=== PATIENT | female | born 1980 | race Caucasian/White ===

== ENCOUNTER 2016-03-10 06:41 | Emergency (ER) | payer BC ==
[~2016-03-10] VITALS: Ht 175.3 cm; Wt 132.6 kg
[~2016-03-10 06:41] MED LIST: ALPR-411 PO; ANT25 PO; CITA20TA9 PO; HYDR0.5T PO; MELO7.5T5 PO
[2016-03-10 06:46] VITALS: TEMP 37; Ht 175.3 cm; Wt 132.6 kg
[2016-03-10 07:45] LABS: URINE APPEARANCE CLEAR (CLEAR); URINE BILIRUBIN NEG (NEG); URINE COLOR YELLOW; URINE NITRITE NEG (NEG); URINE PH 5.5 (4.5-7.5); URINE SPECIFIC GRAVITY 1.007 (1.000-1.030); UROBILINOGEN NEG (NEG)
[2016-03-10 07:46] LABS: MANUAL MICROSCOPIC REQUIRED? YES; REVIEW REQ? NO
[2016-03-10] MEDS ORDERED: CIPR1TAB10 PO (07:53)
[2016-03-10 08:15] LABS: URINE BACTERIA 1+ (NEG); URINE WBC >30 /hpf (0-5)
[2016-03-10 08:16] LABS: ZZUR CULT IF INDIC CLEAN CATCH YES
[2016-03-10] MEDS ORDERED: METH4PAK PO (10:36)
--- NOTE | 2016-03-10 10:37 | EMERGENCY ROOM VISIT NOTE ---
History First contact with patient: 07:03 Chief Complaint: FLU LIKE SX Stated Complaint: FEVER,CHILLS,COLD SWEAT,SWOLLEN THROAT History of Present Illness The patient is a 36 year old female who presents to the Emergency Room with complaints of fever or chills and sore throat which started on Thursday. The patient states her symptoms started Thursday with fever chills and sweating and a temperature of 102.1. Then on Thursday when she woke up she had swelling in her lymph nodes and a sore throat. She continued to have a fever. The patient denies any head congestion, ear pain, cough, nausea, vomiting or diarrhea. The patient did have some urinary frequency with voiding small amounts but denied any dysuria, hematuria or urgency. The patient went to urgent care on Thursday due to the sore throat. She also stated that she had some low back pain and therefore they tested her for a UTI. They placed her on Cipro and were to call her in 24 hours with the culture results but they never called her back. She does admit that her urinary frequency has improved. She also states she has not had a low back pain. She woke up this morning with a migraine and took her migraine medicine patient with relief. The patient had a tonsillectomy in the past. Review of Systems 10 system review was performed and was negative unless stated otherwise history of present illness. Past Medical/Surgical History Medical Problems: (1) Rheumatoid arthritis (2) Vertigo Surgical Problems: (1) H/O tubal ligation Knee surgery, ankle surgery Family History Kidney disease Kidney stones Social History Smoking Status: Never Smoker Alcohol Use: occasionally Drug Use: none Marital Status: Housing Status: lives with family Occupation Status: employed Current/Historical Medications Scheduled Ciprofloxacin Hcl (Cipro), 500 MG PO BID Hydroxychloroquine Sulfate (Plaquenil), 400 MG PO QPM Meclizine HCl (Meclizine HCl), 25 MG PO PRN UD Meloxicam (Mobic), 7.5 MG PO QPM Scheduled PRN Alprazolam (Alprazolam), 0.5 MG PO DAILY PRN for Anxiety Allergies Coded Allergies: Codeine (Unverified Adverse Reaction, Unknown, GI UPSET, 03/10/16) Physical Exam Vital Signs Date Time Temp Pulse Resp B/P Pulse Ox O2 Delivery O2 Flow Rate FiO2 03/10/16 09:16 80 18 118/69 99 Room Air 03/10/16 06:46 37.0 94 20 125/84 98 Room Air Physical Exam Physical EXAM: Vital Signs were reviewed: Temperature 37.0, blood pressure 125/ 84, pulse rate 94, respiratory rate 20 Reviewed Nurse's notes and agree. Oxygen saturation is 98 % on room air which is normal . GENERAL: 36-year-old white female appears in no acute distress. MENTAL STATUS: Alert, oriented, coherent. EARS: Canals clear. TMs good light reflex, no erythema or fluid level noted. NOSE: Nasal mucosa with mild erythema and engorgement. PHARYNX: Mild erythema, no edema noted. No exudate noted. Tonsils absent .uvula is midline without deviation. Airway is adequate. NECK: Supple, bilateral anterior cervical lymphadenopathy is noted which is tender to palpation. No posterior nodes noted.. LUNGS: Clear to auscultation without wheezes rales or rhonchi. CARDIAC: Regular rate and rhythm without murmur. BACK: No CVA tenderness noted. ABDOMEN: Positive bowel sounds all 4 quadrants. Soft, nontender to palpation without organomegaly or masses. SKIN: No rashes noted. Medical Decision & Procedures Laboratory Results Test 03/10/16 07:20 03/10/16 09:15 Urine Color YELLOW Urine Appearance CLEAR (CLEAR) Urine pH 5.5 (4.5-7.5) Urine Specific [place] 1.007 (1.000-1.030) Urine Protein NEG (NEG) Urine Glucose (UA) NEG (NEG) Urine Ketones NEG (NEG) Urine Occult Blood 3+ (NEG) Urine Nitrite NEG (NEG) Urine Bilirubin NEG (NEG) Urine Urobilinogen NEG (NEG) Urine Leukocyte Esterase TRACE (NEG) Urine WBC (Auto) /hpf (0-5) Urine RBC (Auto) /hpf (0-4) Urine Hyaline Casts (Auto) /lpf (0-5) Urine Epithelial Cells (Auto) /lpf (0-5) Urine Bacteria (Auto) (NEG) Urine RBC 10-30 /hpf (0-4) Urine WBC >30 /hpf (0-5) Urine Epithelial Cells >30 /lpf (0-5) Urine Bacteria 1+ (NEG) Influenza Type A Antigen Neg for Influ A (NEG) Influenza Type B Antigen Neg for Influ B (NEG) ED Course The patient was evaluated. Rapid strep was negative, culture is pending. Rapid influenza was negative for influenza A and influenza B Urinalysis was consistent with UTI the patient is already on Cipro for the UTI. The patient was informed of all findings. The patient was discharged home in stable condition. Medical Decision Differential diagnosis include influenza, strep pharyngitis, mononucleosis, viral URI Impression Primary Impression: Upper respiratory infection Additional Impression: Pharyngitis Departure Information Dispostion Home / Self-Care Condition GOOD Prescriptions Methylprednisolone (MEDROL DOSEPAK) 4 Mg Jesus 0 PO DAILY, #1 PKT Prov: Yamila Jiménez PA-C 03/10/16 Referrals Syl Galdamez M.D. (PCP) Forms HOME CARE DOCUMENTATION FORM, IMPORTANT VISIT INFORMATION Patient Instructions A Signature Page, [facility], Sore Throat - [facility] Additional Instructions Follow sore throat handout instructions. Call in 24 hours for throat culture results. Push fluids, rest. Tylenol and/or ibuprofen as needed for fever and body aches. Take Medrol dosepak as prescribed. If symptoms persist, follow-up with her family physician.
[2016-03-10 10:56] VITALS: BP 111/66; PULSE 71; O2SAT 99
== END 2016-03-10 10:57 | disposition home or self-care (01) ==
LOC: C.EDB 06:42
DX: J06.9 Acute upper respiratory infection, unspecified (principal); J02.9 Acute pharyngitis, unspecified; M06.9 Rheumatoid arthritis, unspecified; Z98.51 Tubal ligation status; Z84.1 Family history of disorders of kidney and ureter

== ENCOUNTER 2017-02-15 10:21 | Emergency (ER) | payer BC ==
[~2017-02-15] VITALS: Ht 175.3 cm; Wt 114.9 kg
[~2017-02-15 10:21] MED LIST changes: +CIPR1TAB10 PO; -CITA20TA9 PO
[2017-02-15 10:47] VITALS: TEMP 36.9; Ht 175.3 cm; Wt 114.9 kg
--- NOTE | 2017-02-15 11:37 | DIAGNOSTIC IMAGING REPORT ---
R FOOT MIN 3 VIEWS ROUTINE HISTORY: 37 years-old Female foot pain/injury acute right foot pain status post fall COMPARISON: None available TECHNIQUE: 3 views of the right foot FINDINGS: Moderate plantar enthesophyte about the calcaneus. Mild medial midfoot and ankle soft tissue swelling. There is no acute fracture, dislocation or significant degenerative changes identified. No opaque foreign body. IMPRESSION: Mild soft tissue swelling without acute fracture or dislocation. The above report was generated using voice recognition software. It may contain grammatical, syntax or spelling errors. Electronically signed by: Cooper Lane M.D. 02/15/2017 11:35 AM Dictated Date/Time: 02/15/2017 11:33 AM
[2017-02-15] MEDS ORDERED: PLQ200 PO (11:41)
[2017-02-15] MEDS ORDERED: RIZA10TA21 PO (11:41)
--- NOTE | 2017-02-15 11:46 | EMERGENCY ROOM VISIT NOTE ---
ED Visit Note First contact with patient: 10:58 CHIEF COMPLAINT: Right Foot injury HISTORY of present illness: This 37-year-old female with a history of RA presents the ER with chief complaint of right foot pain. The patient states yesterday she was carrying groceries up a few steps and somehow injured her right foot. She cannot say exactly what happened to the foot but now she has severe pain with weightbearing. The patient denies any ankle pain. The patient denies any numbness and tingling in her toes. Patient denies any prior injury to her right foot. She took ibuprofen with some relief of pain. REVIEW OF SYSTEMS: 6 system review was performed and was negative unless stated otherwise in history of present illness. PMH: The patient is healthy; RA, tonsillectomy, adenoidectomy, left knee and ankle surgery SOCIAL HISTORY: Patient lives with her family. The patient denies any tobacco or alcohol use. PHYSICAL EXAM: Vital Signs: Were reviewed Reviewed Nurse's notes. GENERAL: 37- year-old white female appears in no acute distress. MENTAL Status: Alert and oriented 3. RIGHT Foot: No gross bony deformity noted. The patient is tender and swollen over the medial tarsal region on the dorsal aspect. She is able to move her toes without difficulty. Sensation is intact. Ankle joint is nontender with full range of motion. EMERGENCY DEPARTMENT COURSE: The patient was evaluated. The patient's EMR medication list were reviewed. The patient was offered additional pain medication but declined. X-ray of the right foot was ordered interpreted by the radiologist and myself. DIAGNOSTICS:R FOOT MIN 3 VIEWS ROUTINE HISTORY: 37 years-old Female foot pain/injury acute right foot pain status post fall COMPARISON: None available TECHNIQUE: 3 views of the right foot FINDINGS: Moderate plantar enthesophyte about the calcaneus. Mild medial midfoot and ankle soft tissue swelling. There is no acute fracture, dislocation or significant degenerative changes identified. No opaque foreign body. IMPRESSION: Mild soft tissue swelling without acute fracture or dislocation. The above report was generated using voice recognition software. It may contain grammatical, syntax or spelling errors. Electronically signed by: Cooper Lane M.D. 02/15/2017 11:35 AM The patient was informed of the findings. The patient was placed in a postop shoe and given crutches. The patient refused any additional pain medications for at home. The patient was discharged home in stable condition. TREATMENT: Ice and elevation for one day. Ibuprofen, 600mg every 6 hours for the pain. Wear postop shoe and use crutches for ambulation until pain is tolerable without them. If symptoms are not improving in 3-4 days, follow-up with [facility]. DIAGNOSIS: Right foot pain Problem List Medical Problems: (1) Rheumatoid arthritis Status: Chronic (2) Vertigo Status: Resolved Surgical Problems: (1) H/O tubal ligation Status: Resolved Current/Historical Medications Scheduled Hydroxychloroquine Sulfate (Hydroxychloroquine Sulfat), 400 MG PO QPM Meloxicam (Mobic), 7.5 MG PO QPM Scheduled PRN Rizatriptan Benzoate (Rizatriptan Benzoate), 10 MG PO UD PRN for Migraine Allergies Coded Allergies: Codeine (Unverified Adverse Reaction, Unknown, GI UPSET, 02/15/17) Vital Signs Date Time Temp Pulse Resp B/P (MAP) Pulse Ox O2 Delivery O2 Flow Rate FiO2 02/15/17 10:47 36.9 77 18 137/98 99 Room Air Departure Information Referrals Syl Galdamez M.D. (PCP) Patient Instructions [facility]
[2017-02-15 12:08] VITALS: BP 131/96; PULSE 69; O2SAT 98
== END 2017-02-15 12:05 | disposition home or self-care (01) ==
LOC: C.EDB 10:28 → C.EDD 12:05
DX: M79.671 Pain in right foot (principal); M06.9 Rheumatoid arthritis, unspecified; Z98.51 Tubal ligation status; Z90.89 Acquired absence of other organs; Z98.890 Other specified postprocedural states; Z79.1 Long term (current) use of non-steroidal anti-inflammatories (NSAID); Z79.899 Other long term (current) drug therapy

== ENCOUNTER 2019-01-17 09:16 | Inpatient (IN) ==
[2019-01-17 10:29] LABS: Basophils # (auto) 0.03 K/uL (0-0.2); Basophils % (auto) 0.4 %; Eosinophils # (auto) 0.06 K/uL (0-0.5); Eosinophils % (auto) 0.8 %; Hematocrit (blood only) 42.1 % (37-47); Hemoglobin 14.1 g/dL (12.0-16.0); Immature Granulocytes # (auto) 0.01 K/uL (0.00-0.02); Immature Granulocytes % (auto) 0.1 %; Lymphocytes # (auto) 2.26 K/uL (1.2-3.4); Mean Corpuscular Hemoglobin 30.4 pg (25-34); Mean Corpuscular Hgb Conc 33.5 g/dL (32-36); Mean Corpuscular Volume 90.7 fL (80-100); Mean Platelet Volume 10.3 fL (7.4-10.4); Monocytes # (auto) 0.43 K/uL (0.11-0.59); Monocytes % (auto) 5.9 %; Neutrophils # (auto) 4.49 K/uL (1.4-6.5); Neutrophils % (auto) 61.8 %; Platelet Count 380 K/uL (130-400); RDW Coefficient of Variation 13.6 % (11.5-14.5); RDW Standard Deviation 44.7 fL (36.4-46.3); Red Blood Count 4.64 M/uL (4.2-5.4); White Blood Count 7.28 K/uL (4.8-10.8)
[2019-01-17 10:30] LABS: Appearance Urine Clear (Clear); Bilirubin Urine Negative (Negative); Blood Urine Negative (Negative); Color Urine Yellow; Glucose Urine UA Negative (Negative); Ketones Urine Negative (Negative); Leukocyte Esterase Urine Negative (Negative); Nitrite Urine Negative (Negative); Protein Urine Negative (Negative); Specific Gravity Urine 1.021 (1.000-1.030); Urobilinogen Urine Negative (Negative); pH Urine 6.5 (4.5-7.5)
[2019-01-17 10:45] LABS: Albumin Level 3.5 gm/dl (3.4-5.0); BUN Creatinine Ratio 15.1 (10-20); Calcium 8.6 mg/dl (8.5-10.1); Creatinine Clr Calc Pharmacy 147.7 ml/min; Est GFR (African American) 120.8; Est GFR (Non-African American) 104.2; Magnesium 1.9 mg/dl (1.8-2.4); Potassium 3.9 mmol/L (3.5-5.1)
[2019-01-17 10:55] LABS: Pregnancy Test, Serum Negative (Negative)
[2019-01-17 10:56] LABS: Bilirubin,Total 0.3 mg/dl (0.2-1); Globulin 3.6 gm/dl (2.5-4.0); Thyroid Stimulating Hormone 0.661 uIu/ml (0.300-4.500); Total Protein 7.1 gm/dl (6.4-8.2)
[2019-01-17 11:24] LABS: Lyme Ab IgG w/WB Rflx Negative (Negative); Lyme Ab IgM w/WB Rflx Negative (Negative)
[2019-01-17] MEDS ORDERED: GADOBUTROL 65ML VIAL IV PRN (12:16)
--- NOTE | 2019-01-17 12:43 | Magnetic Resonance Report ---
MR lumbar spine wo con CLINICAL HISTORY: Bilateral lower leg numbness. TECHNIQUE: Sagittal and axial T1, T2 and STIR images were obtained. COMPARISON STUDY: No previous studies for comparison. OBSERVATIONS: The vertebral bodies and posterior elements appear intact. There is no abnormal bony signal present t o suggest a marrow replacement process. L1-2: There is a mild circumferential disc bulge. There is mild flattening of the anterior thecal sac . There is no significant foraminal narrowing L2-3: There is a circumferential disc bulge. There is mild triangular spinal stenosis. There is no si gnificant foraminal narrowing. L3-4: There is a mild circumferential disc bulge. There is minimal triangular spinal canal narrowing. There is no significant foraminal narrowing L4-5: There is a mild circumferential disc bulge. There is no significant spinal or foraminal stenosi s. L5-S1: There is a mild circumferential disc bulge. There is no significant spinal or foraminal stenos is. On the sagittal inversion recovery sequence, there is an equivocal 9 mm focus of increased signal wit hin the distal spinal cord the T12 level. This was not visualized the standard T2 images. Axial image s were not obtained to this level on this MR lumbar spine study. The technologist was notified, and t hin section images will be obtained through this level on the thoracic spine MRI which is pending IMPRESSION: 1. Equivocal 9 mm focus of increased signal within the distal spinal cord the T12 level. This will be further evaluated on an MRI of the thoracic spine which is pending 2. Mild multilevel spondylytic changes with minor triangular spinal canal narrowing at the L2-3 and L 3-4 level Electronically signed by: Ramón Davalos M.D. 01/17/2019 12:41 PM
--- NOTE | 2019-01-17 13:47 | Magnetic Resonance Report ---
MR thoracic spine wo/w con CLINICAL HISTORY: Bilateral leg and buttocks numbness. Weakness. COMPARISON STUDY: MRI of the lumbar spine from the same day FINDINGS: Sagittal and axial images were obtained before and after the administration of 12 cc of int ravenous Gadavist There are no suspicious areas of marrow replacement. There are multilevel degenerative changes. There is a tiny right paracentral disc protrusion at the T 8 3-4 level. There is a tiny left paracentral disc protrusion at T5-6 level. There is bilateral poste rior osteophytic spurring at the T6-7 level with small subjacent disc protrusions. There is a small b road-based central disc protrusion at the T7-8 level with overlying osteophytic spurs. There is narro wing of the anterior subarachnoid space. There is a mild circumferential disc bulge at the T8-9 level . There is posterior ligamentous hypertrophy at the T10-11 level. There is a minimal circumferential disc bulge the T11-12 level. These changes result in mild spinal stenosis at the T8-9 level. There is no evidence for high-grade spinal stenosis. This MRI study of thoracic spine fails to confirm the presence of a T12 cord signal abnormality. Postcontrast images reveal no pathologically enhancing lesions. IMPRESSION: 1. Mild to moderate multilevel spondylytic changes as described above. No evidence of high-grade spin al stenosis 2. No evidence of pathologic enhancement 3. No spinal cord lesions identified. This MRI study of the thoracic spine fails to confirm the prese nce of a T12 intramedullary signal abnormality as was queried on the lumbar spine study Electronically signed by: Ramón Davalos M.D. 01/17/2019 1:46 PM
--- NOTE | 2019-01-17 13:58 | Magnetic Resonance Report ---
CERVICAL SPINE MRI WITH AND WITHOUT CONTRAST HISTORY: numb legs, buttocks, weak TECHNIQUE: Multiplanar multisequence MRI of the cervical spine was performed both before and after th e use of intravenous contrast. COMPARISON STUDY: None. FINDINGS: Mild motion artifact. Straightening of the cervical spine. No fracture or subluxation. Prev ertebral soft tissues and the C1-C2 interval are intact. Multiple punctate foci of T2 hyperintensity seen within the tonya. This is better appreciated on the same day brain MRI. The cervical spinal cord is normal in course, caliber, and signal intensity. No abnormal enhancement. Mild disc space narrowin g at C6-C7. There is a focal anterior disc protrusion resulting in mild mass effect along the prevert ebral soft tissues. This measures 6 mm and is of doubtful clinical significance given the location. N o disc herniations within the central canal. There is a tiny broad-based posterior disc bulge without significant central canal or neural foraminal narrowing. C2-C3: No significant central canal or neural foraminal narrowing. C3-C4: No significant central canal or neural foraminal narrowing. C4-C5: No significant central canal or neural foraminal narrowing. C5-C6: No significant central canal or neural foraminal narrowing. C6-C7: This measures 6 mm and is of doubtful clinical significance given the location. No disc hernia tions within the central canal. There is a tiny broad-based posterior disc bulge without significant central canal or neural foraminal narrowing. C7-T1: No significant central canal or neural foraminal narrowing. IMPRESSION: 1. Punctate foci of T2 hyperintensity seen within the tonya. This is better appreciated on the same da y brain MRI. This is concerning for a demyelinating disease. 2. Straightening of the cervical spine. No significant central canal or neural foraminal narrowing. 3. Mild degenerative disc disease at C6-C7. Electronically signed by: Scott Brooks M.D. 01/17/2019 1:57 PM
--- NOTE | 2019-01-17 14:09 | Magnetic Resonance Report ---
MR brain wo/w con HISTORY: 38 years-old Female numb legs, buttocks, weak acute bilateral lower extremity numbness COMPARISON: CT head of same day TECHNIQUE: Multiplanar multisequence MRI of the brain was obtained both with and without the use of 1 2.0 mL Gadavist FINDINGS: Principal Examiner localizer images demonstrate no gross extracranial abnormality. There is no restricted diffusio n to suggest acute or subacute infarction. There are a few areas of T2 shine through noted within the bilateral parietal lobes on the diffusion-weighted sequence. No acute intracranial hemorrhage, midli ne shift, abnormal extra-axial collection, hydrocephalus or intracranial mass identified. There are s everal predominantly linear foci of increased T2/FLAIR signal noted within the deep and periventricul ar white matter of the bilateral cerebral hemispheres, predominantly within the parietal and occipita l lobes with multiple punctate foci of increased T2/FLAIR signal noted within the central tonya. There are a few additional scattered foci noted within the bilateral cerebellar hemispheres. Several these lesions demonstrate postcontrast enhancement, the largest lesion within the right occipital lobe luis a suring 9 mm (please see bookmarks). Punctate enhancement within the pontine lesions. Major flow voids appear patent. Mastoid air cells are clear. Polypoid mucosal thickening of the maxil lexi sinuses measures up to 2.2 cm on the left. Mild mucosal thickening of the nasal turbinates and e thmoid air cells. The skull, orbits and soft tissues are within normal limits. IMPRESSION: 1. No acute intracranial abnormality identified. 2. Multiple foci of increased T2/FLAIR signal noted within the white matter of the bilateral cerebral hemispheres, bilateral cerebellar hemispheres and central tonya with several of these lesions demonst rating postcontrast enhancement. Primary differential consideration would include demyelinating disea se such as multiple sclerosis or Lyme's disease with active demyelination. Neurology workup with lumb ar puncture and CSF analysis recommended. 3. Paranasal sinus disease. The above report was generated using voice recognition software. It may contain grammatical, syntax o r spelling errors. Electronically signed by: Cooper Lane M.D. 01/17/2019 2:07 PM
[2019-01-17] MEDS ORDERED: methylPREDNISolone 1,000 MG in DEXTROSE 5% 250 ML IV STA (15:02)
[2019-01-17] MEDS ORDERED: ONDANSETRON INJ 2 MG/ML 2 ML VIAL IV PRN (16:48)
[2019-01-17] MEDS ORDERED: ACETAMINOPHEN 325 MG TAB PO PRN (16:48)
[2019-01-17] MEDS: SODIUM CHLORIDE 0.9% 1000ML 1,000 ML IV SCH (16:56)
--- NOTE | 2019-01-17 17:13 | Emergency Department Note ---
Entered by Jr Valdivia acting as a scribe for Adrian Jasmine MD History of Present Illness General Chief complaint: Leg Weakness, Bilateral Stated complaint: numbness in both legs moving up Time Seen by Provider: 01/17/19 09:54 Source: patient History of Present Illness Onset (ago): day(s) 5 Location: lower extremity (bilateral feet) Pain Consistency: + other (worsening) Maximum Pain Intensity: 0 Quality: + other (bilateral feet tingling and numbness) Associated symptoms: + other (+buttock numbness; -pain to feet; -back pain; - burning with urination; -bowel movement issues ) The patient is a 38 year old female, with past medical history of rheumatoid arthritis, who presents to the Emergency Room with complaints of worsening bilateral feet tingling and numbness over the past 5 days. The patient notes her feet feel as if she walked on snow for a while. The patient also states her feet have felt cold. The patient denies pain to her feet, and reports just numbness and tingling. The patient states she stepped on a vasiliy this morning, and she st ates she never even realized she stepped on the vasiliy because she could not feel it. The patient also reports that she started experiencing numbness to her buttocks beginning yesterday. The patient notes she originally contributed the buttock numbness to sitting all day yesterday, but the patient states the numbness has not resolved today. The patient denies prior history of nerve or circulation issues to her feet, and the patient denies recent tick bites. The patient also denies pain to her back or similar symptoms to her arms. Patient had shingles in July of this year and was on Valtrex for 2 weeks. The patient states she has been on Valtrex again for about 3 weeks due to a potential flare- up of shingles-her right eye has been giving her some difficulty. The patient notes she has a cataract procedure upcoming soon. The patient states she is also on Enbrel. The patient denies a burning sensation with urination. However, the patient notes that earlier today she felt like she had already urinated in her pants prior to going to the bathroom, but she states that when she got to the bathroom, she noticed no early urination. The patient denies bowel movement issues. The patient denies being diabetic. Home Medications Home Medications Medication Instructions Recorded Confirmed Type rizatriptan 10 mg PO UD PRN 05/23/18 01/17/19 History valacyclovir 1,000 mg PO BID 01/17/19 01/17/19 History prednisolone acetate 1 drp OPHTHALMIC (EYE) BID #10 ml 01/19/19 Rx prednisone 10 mg PO DIRECTED #68 tab 01/19/19 Rx Allergies Allergy/AdvReac Type Severity Reaction Status Date / Time codeine AdvReac Unknown GI UPSET Unverified 01/17/19 10:34 Past Med/Surg History Medical History Concussion (Acute) Head trauma (Acute) Rheumatoid arthritis (Chronic) Vertigo (Resolved) Surgical History H/O tubal ligation (Resolved) Family History Other No pertinent family history in first degree relatives Social History Preferred Language: Turkish Communication Ability: Effective Breast Buffer Required: No Beliefs That Will Affect Care: Restorationist Restorationist Beliefs: Evangelical Current Living Situation: Family Feels Safe at Home: Yes Smoking Status: Never smoker Second Hand Exposure: No ; Hx Alcohol Use: Yes Hx Substance Use: No Review of Systems See HPI for pertinent positives & negatives. and A total of 10 systems reviewed and were otherwise negative Physical Exam Vital Signs Vital Signs - 24 hr 01/17/19 09:22 01/17/19 10:17 01/17/19 13:53 Temperature 36.7 C Temperature Source Oral Sepsis Recent Fever Within 48 Hours No Sepsis Action Taken by Nursing No Action Required Pulse Rate 82 Pulse Rate [Finger] 90 84 Pulse Rhythm Regular Pulse Rhythm [Finger] Pulse Strength Normal Pulse Strength [Finger] Respiratory Rate 20 18 18 Respiratory Effort / Characteristics Non-Labored Spontaneous Non-Labored Respiratory Depth Normal Normal Respiratory Pattern Regular Blood Pressure 143/98 H Blood Pressure [Right Arm] 155/90 H 138/92 Blood Pressure Mean 113 Blood Pressure Mean [Right Arm] 111 107 Blood Pressure Position [Right Arm] Pulse Oximetry 100 99 100 Oxygen Delivery Method Room Air Room Air Room Air 01/17/19 15:42 Temperature Temperature Source Sepsis Recent Fever Within 48 Hours Sepsis Action Taken by Nursing Pulse Rate Pulse Rate [Finger] 98 H Pulse Rhythm Pulse Rhythm [Finger] Regular Pulse Strength Pulse Strength [Finger] Normal Respiratory Rate 16 Respiratory Effort / Characteristics Non-Labored Respiratory Depth Normal Respiratory Pattern Regular Blood Pressure Blood Pressure [Right Arm] 162/90 H Blood Pressure Mean Blood Pressure Mean [Right Arm] 114 Blood Pressure Position [Right Arm] Sitting Pulse Oximetry 98 Oxygen Delivery Method Room Air GENERAL: Patient is in no acute distress. HEENT: No acute trauma, normocephalic atraumatic, mucous membranes moist, no nasal congestion, no scleral icterus. NECK: No stridor, no adenopathy, no meningismus, trachea is midline. LUNGS: Clear to auscultation bilaterally, no wheeze, no rhonchi, breath sounds equal. HEART: Without murmurs gallops or rubs, regular rate and rhythm. ABDOMEN: Soft, nontender, bowel sounds positive, no hernias, no peritonitis. EXTREMITIES: No cyanosis or edema, full range of motion of all the joints without pain or difficulty, no signs for acute trauma. Strong +2 dorsalis pedis pulses. NEUROLOGIC: Oriented x 3, no acute motor or sensory deficits, no focal weakness. 2/4 patellar and Achilles reflexes bilaterally. Normal sensation to the perineal and perirectal area. Patient has normal anal sphincter tone. SKIN: No rash, no jaundice, no diaphoresis. Course 0957: Past medical records reviewed. The patient was evaluated in room C9. A complete history and physical exam was performed. 1014: I discussed the patient's case with Dr. Cavanaugh-Neurology. Dr. Cavanaugh wants the entire spine of the patient imaged. 1023: I discussed the patient's case with Dr. Davalos-Radiology. 1025: I updated the patient on her case. 1105: MRI called to make sure the correct imaging was ordered. 1430: I discussed the patient's case with Dr. Cavanaugh-Neurology, who recommends the patient to be hospitalized. 1446: I updated the patient on her case. The patient is willing to stay in the hospital. 1515: I discussed the patient's case with Sole Slade-AYSE Ramsey. Dr. Cuba-Hospitalist Roxy will further evaluate the patient. Consultations Consultation #1: I discussed the patient's case with Dr. Cavanaugh-Neurology. Dr. Cavanaugh wants the entire spine of the patient imaged. Time: 10:14 Consultation #2: I discussed the patient's case with Dr. Davalos-Radiology. Time: : Consultation #3: I discussed the patient's case with Dr. Cavanaugh-Neurology, who recommends the patient to be hospitalized. Time: 14:30 Additional Consultation(s): 1515: I discussed the patient's case with Sole Ramsey. Dr. Cuba-Hospitalist Roxy will further evaluate the patient. Administered Medications Discontinued Medications Acetaminophen (Tylenol) 1,000 mg PO Q4H PRN PRN Reason: Mild Pain Stop: 01/20/19 10:45 Last Admin: 01/19/19 09:28 Dose: 1,000 mg Documented by: [id number] Gadobutrol (Gadavist 65ml) 12 ml IV ONCE PRN PRN Reason: Interaction Checking Stop: 01/21/19 12:15 Last Admin: 01/17/19 12:17 Dose: 12 ml Documented by: [id number] Methylprednisolone 1,000 mg/ (Dextrose) 266 mls @ 266 mls/hr IV NOW STA Stop: 01/17/19 16:01 Last Infusion: 01/17/19 16:57 Dose: 0 mls/hr Documented by: [id number] Admin: 01/17/19 15:41 Dose: 266 mls/hr Documented by: [id number] Sodium Chloride (Nss 1000ml) 1,000 mls @ 75 mls/hr IV .[id number] SHEYLA Stop: 02/16/19 16:47 Last Admin: 01/19/19 07:38 Dose: 75 mls/hr Documented by: [id number] Infusion: 01/19/19 07:38 Dose: 75 mls/hr Documented by: [id number] Admin: 01/18/19 20:23 Dose: 75 mls/hr Documented by: [id number] Infusion: 01/18/19 19:31 Dose: 75 mls/hr Documented by: [id number] Admin: 01/18/19 06:11 Dose: 75 mls/hr Documented by: [id number] Infusion: 01/18/19 06:11 Dose: 75 mls/hr Documented by: [id number] Admin: 01/17/19 16:56 Dose: 75 mls/hr Documented by: [id number] Methylprednisolone 1,000 mg/ (Dextrose) 266 mls @ 266 mls/hr IV NOW STA Stop: 01/18/19 17:46 Last Infusion: 01/18/19 19:19 Dose: 0 mls/hr Documented by: [id number] Admin: 01/18/19 17:46 Dose: 266 mls/hr Documented by: [id number] Methylprednisolone 1,000 mg/ (Dextrose) 266 mls @ 266 mls/hr IV DAILY SHEYLA Stop: 01/19/19 09:59 Last Infusion: 01/19/19 08:56 Dose: 0 mls/hr Documented by: [id number] Admin: 01/19/19 07:38 Dose: 266 mls/hr Documented by: [id number] Ioversol (Optiray 320 125ml) 116 ml IV ONCE PRN PRN Reason: Interaction Checking Stop: 01/21/19 19:44 Last Admin: 01/17/19 19:46 Dose: 116 ml Documented by: [id number] Prednisolone Acetate (Pred Forte 1%) 1 drops OP BID SHELYA Stop: 02/16/19 20:59 Last Admin: 01/19/19 07:38 Dose: 1 drops Documented by: [id number] Admin: 01/18/19 21:01 Dose: 1 drops Documented by: [id number] Admin: 01/18/19 07:58 Dose: 1 drops Documented by: [id number] Admin: 01/17/19 20:46 Dose: 1 drops Documented by: [id number] Valacyclovir HCl (Valtrex) 1,000 mg PO BID SHEYLA Stop: 01/27/19 20:59 Last Admin: 01/19/19 07:38 Dose: 1,000 mg Documented by: [id number] Admin: 01/18/19 21:01 Dose: 1,000 mg Documented by: [id number] Admin: 01/18/19 07:58 Dose: 1,000 mg Documented by: [id number] Admin: 01/17/19 20:45 Dose: 1,000 mg Documented by: [id number] Impression & Plan Bilateral leg weakness, Bilateral leg numbness, Abnormal brain MRI Discharge Plan Visit Data *Final* Discharge Date/Time: 01/17/19 16:28 Chief Complaint: Leg Weakness, Bilateral Stated Complaint: numbness in both legs moving up ED Provider: Adrian Jasmine Discharge Problem: Bilateral leg weakness, Bilateral leg numbness, Abnormal brain MRI Patient Disposition: Admitted As Inpatient Condition: Good Discharge Instructions Interventions: ED Discharge Assessment Last Done: 01/17/19 16:28 Medical Decision Making Differential Diagnosis Differential diagnoses include Guillain-Johnson, Lyme disease, medication reaction, MS, transverse myelitis, thyroid disorder, neuropathy, cauda equina, spinal lesion, amongst others were considered. Medical Records Attestation: I reviewed the patient's medical records. Home Medications Current Medication List: was personally reviewed by me Laboratory Data Attestation: I reviewed the patient's lab results. Result diagrams: 01/19/19 06:28 01/19/19 06:28 Lab Results 01/17/19 01/17/19 01/17/19 Range/Units 10:19 10:22 10:22 WBC 7.28 (4.8-10.8) K/uL RBC 4.64 (4.2-5.4) M/uL Hgb 14.1 (12.0-16.0) g/dL Hct 42.1 (37-47) % MCV 90.7 (80-100) fL MCH 30.4 (25-34) pg MCHC 33.5 (32-36) g/dL RDW Std Deviation 44.7 (36.4-46.3) fL RDW Coeff of Dirk 13.6 (11.5-14.5) % Plt Count 380 (130-400) K/uL MPV 10.3 (7.4-10.4) fL Immature Gran % (Auto) 0.1 % Neut % (Auto) 61.8 % Lymph % (Auto) 31.0 % Stanley % (Auto) 5.9 % Eos % (Auto) 0.8 % Baso % (Auto) 0.4 % Immature Gran # (Auto) 0.01 (0.00-0.02) K/uL Neut # (Auto) 4.49 (1.4-6.5) K/uL Lymph # (Auto) 2.26 (1.2-3.4) K/uL Stanley # (Auto) 0.43 (0.11-0.59) K/uL Eos # (Auto) 0.06 (0-0.5) K/uL Baso # (Auto) 0.03 (0-0.2) K/uL ESR (0-21) mm/hr Sodium (136-145) mmol/L Potassium (3.5-5.1) mmol/L Chloride (98-107) mmol/L Carbon Dioxide (21-32) mmol/L Anion Gap (3-11) BUN (7-18) mg/dl Creatinine (0.6-1.2) mg/dl Est Cr Clr Drug Dosing ml/min Est GFR ( Amer) Est GFR (Non-Af Amer) BUN/Creatinine Ratio (10-20) Glucose (70-99) mg/dl Calcium (8.5-10.1) mg/dl Magnesium (1.8-2.4) mg/dl Total Bilirubin (0.2-1) mg/dl AST (15-37) U/L ALT (12-78) U/L Alkaline Phosphatase (45-117) U/L Total Protein (6.4-8.2) gm/dl Albumin (3.4-5.0) gm/dl Globulin (2.5-4.0) gm/dl Albumin/Globulin Ratio (0.9-2) TSH (0.300-4.500) uIu/ml HCG, Qual Negative (Negative) Urine Color Yellow Urine Appearance Clear (Clear) Urine pH 6.5 (4.5-7.5) Ur Specific Prentice 1.021 (1.000-1.030) Urine Protein Negative (Negative) Urine Glucose (UA) Negative (Negative) Urine Ketones Negative (Negative) Urine Blood Negative (Negative) Urine Nitrite Negative (Negative) Urine Bilirubin Negative (Negative) Urine Urobilinogen Negative (Negative) Ur Leukocyte Esterase Negative (Negative) Lyme Disease IgG Ab Negative (Negative) Lyme Disease IgM Ab Negative (Negative) 01/17/19 01/17/19 Range/Units 10:22 10:22 WBC (4.8-10.8) K/uL RBC (4.2-5.4) M/uL Hgb (12.0-16.0) g/dL Hct (37-47) % MCV (80-100) fL MCH (25-34) pg MCHC (32-36) g/dL RDW Std Deviation (36.4-46.3) fL RDW Coeff of Dirk (11.5-14.5) % Plt Count (130-400) K/uL MPV (7.4-10.4) fL Immature Gran % (Auto) % Neut % (Auto) % Lymph % (Auto) % Stanley % (Auto) % Eos % (Auto) % Baso % (Auto) % Immature Gran # (Auto) (0.00-0.02) K/uL Neut # (Auto) (1.4-6.5) K/uL Lymph # (Auto) (1.2-3.4) K/uL Stanley # (Auto) (0.11-0.59) K/uL Eos # (Auto) (0-0.5) K/uL Baso # (Auto) (0-0.2) K/uL ESR 18 (0-21) mm/hr Sodium 140 (136-145) mmol/L Potassium 3.9 (3.5-5.1) mmol/L Chloride 109 H (98-107) mmol/L Carbon Dioxide 25 (21-32) mmol/L Anion Gap 6.0 (3-11) BUN 11 (7-18) mg/dl Creatinine 0.74 (0.6-1.2) mg/dl Est Cr Clr Drug Dosing 147.7 ml/min Est GFR ( Amer) 120.8 Est GFR (Non-Af Amer) 104.2 BUN/Creatinine Ratio 15.1 (10-20) Glucose 91 (70-99) mg/dl Calcium 8.6 (8.5-10.1) mg/dl Magnesium 1.9 (1.8-2.4) mg/dl Total Bilirubin 0.3 (0.2-1) mg/dl AST 8 L (15-37) U/L ALT 14 (12-78) U/L Alkaline Phosphatase 60 (45-117) U/L Total Protein 7.1 (6.4-8.2) gm/dl Albumin 3.5 (3.4-5.0) gm/dl Globulin 3.6 (2.5-4.0) gm/dl Albumin/Globulin Ratio 1.0 (0.9-2) TSH 0.661 (0.300-4.500) uIu/ml HCG, Qual (Negative) Urine Color Urine Appearance (Clear) Urine pH (4.5-7.5) Ur Specific Prentice (1.000-1.030) Urine Protein (Negative) Urine Glucose (UA) (Negative) Urine Ketones (Negative) Urine Blood (Negative) Urine Nitrite (Negative) Urine Bilirubin (Negative) Urine Urobilinogen (Negative) Ur Leukocyte Esterase (Negative) Lyme Disease IgG Ab (Negative) Lyme Disease IgM Ab (Negative) Imaging Data Radiologist's Impression: Radiology results as stated below per my review and the radiologist's interpretation: MR brain wo/w con HISTORY: 38 years-old Female numb legs, buttocks, weak acute bilateral lower extremity numbness COMPARISON: CT head of same day TECHNIQUE: Multiplanar multisequence MRI of the brain was obtained both with and without the use of 12.0 mL Gadavist FINDINGS: Shelter Monitor localizer images demonstrate no gross extracranial abnormality. There is no restricted diffusion to suggest acute or subacute infarction. There are a few areas of T2 shine through noted within the bilateral parietal lobes on the diffusion-weighted sequence. No acute intracranial hemorrhage, midline shift, ab normal extra-axial collection, hydrocephalus or intracranial mass identified. There are several predominantly linear foci of increased T2/FLAIR signal noted within the deep and periventricular white matter of the bilateral cerebral hemispheres, predominantly within the parietal and occipital lobes with multiple punctate foci of increased T2/FLAIR signal noted within the central tonya. There are a few additional scattered foci noted within the bilateral cerebellar hemispheres. Several these lesions demonstrate postcontrast enhancement, the largest lesion within the right occipital lobe measuring 9 mm (please see bookmarks). Punctate enhancement within the pontine lesions. Major flow voids appear patent. Mastoid air cells are clear. Polypoid mucosal thickening of the maxillary sinuses measures up to 2.2 cm on the left. Mild mucosal thickening of the nasal turbinates and ethmoid air cells. The skull, orbits and soft tissues are within normal limits. IMPRESSION: 1. No acute intracranial abnormality identified. 2. Multiple foci of increased T2/FLAIR signal noted within the white matter of the bilateral cerebral hemispheres, bilateral cerebellar hemispheres and central tonya with several of these lesions demonstrating postcontrast enhancement. Primary differential consideration would include demyelinating disease such as multiple sclerosis or Lyme's disease with active demyelination. Neurology workup with lumbar puncture and CSF analysis recommended. 3. Paranasal sinus disease. The above report was generated using voice recognition software. It may contain grammatical, syntax or spelling errors. Electronically signed by: Cooper Lane M.D. 01/17/2019 2:07 PM MR lumbar spine wo con CLINICAL HISTORY: Bilateral lower leg numbness. TECHNIQUE: Sagittal and axial T1, T2 and STIR images were obtained. COMPARISON STUDY: No previous studies for comparison. OBSERVATIONS: The vertebral bodies and posterior elements appear intact. There is no abnormal bony signal present to suggest a marrow replacement process. L1-2: There is a mild circumferential disc bulge. There is mild flattening of the anterior thecal sac. There is no significant foraminal narrowing L2-3: There is a circumferential disc bulge. There is mild triangular spinal s tenosis. There is no significant foraminal narrowing. L3-4: There is a mild circumferential disc bulge. There is minimal triangular spinal canal narrowing. There is no significant foraminal narrowing L4-5: There is a mild circumferential disc bulge. There is no significant spinal or foraminal stenosis. L5-S1: There is a mild circumferential disc bulge. There is no significant spinal or foraminal stenosis. On the sagittal inversion recovery sequence, there is an equivocal 9 mm focus of increased signal within the distal spinal cord the T12 level. This was not visualized the standard T2 images. Axial images were not obtained to this level on this MR lumbar spine study. The technologist was notified, and thin section images will be obtained through this level on the thoracic spine MRI which is pending IMPRESSION: 1. Equivocal 9 mm focus of increased signal within the distal spinal cord the T12 level. This will be further evaluated on an MRI of the thoracic spine which is pending 2. Mild multilevel spondylytic changes with minor triangular spinal canal narrowing at the L2-3 and L3-4 level Electronically signed by: Ramón Davalos M.D. 01/17/2019 12:41 PM MR thoracic spine wo/w con CLINICAL HISTORY: Bilateral leg and buttocks numbness. Weakness. COMPARISON STUDY: MRI of the lumbar spine from the same day FINDINGS: Sagittal and axial images were obtained before and after the administration of 12 cc of intravenous Gadavist There are no suspicious areas of marrow replacement. There are multilevel degenerative changes. There is a tiny right paracentral disc protrusion at the T8 3-4 level. There is a tiny left paracentral disc protrusion at T5-6 level. There is bilateral posterior osteophytic spurring at the T6-7 level with small subjacent disc protrusions. There is a small broad- based central disc protrusion at the T7-8 level with overlying osteophytic spurs. There is narrowing of the anterior subarachnoid space. There is a mild circumferential disc bulge at the T8-9 level. There is posterior ligamentous hypertrophy at the T10-11 level. There is a minimal circumferential disc bulge the T11-12 level. These changes result in mild spinal stenosis at the T8-9 level. There is no evidence for high-grade spinal stenosis. This MRI study of thoracic spine fails to confirm the presence of a T12 cord signal abnormality. Postcontrast images reveal no pathologically enhancing lesions. IMPRESSION: 1. Mild to moderate multilevel spondylytic changes as described above. No evidence of high-grade spinal stenosis 2. No evidence of pathologic enhancement 3. No spinal cord lesions identified. This MRI study of the thoracic spine fails to confirm the presence of a T12 intramedullary signal abnormality as was queried on the lumbar spine study Electronically signed by: Ramón Davalos M.D. 01/17/2019 1:46 PM CERVICAL SPINE MRI WITH AND WITHOUT CONTRAST HISTORY: numb legs, buttocks, weak TECHNIQUE: Multiplanar multisequence MRI of the cervical spine was performed both before and after the use of intravenous contrast. COMPARISON STUDY: None. FINDINGS: Mild motion artifact. Straightening of the cervical spine. No fracture or subluxation. Prevertebral soft tissues and the C1-C2 interval are intact. Multiple punctate foci of T2 hyperintensity seen within the tonya. This is better appreciated on the same day brain MRI. The cervical spinal cord is normal in course, caliber, and signal intensity. No abnormal enhancement. Mild disc space narrowing at C6-C7. There is a focal anterior disc protrusion resulting in mild mass effect along the prevertebral soft tissues. This measures 6 mm and is of do ubtful clinical significance given the location. No disc herniations within the central canal. There is a tiny broad-based posterior disc bulge without significant central canal or neural foraminal narrowing. C2-C3: No significant central canal or neural foraminal narrowing. C3-C4: No significant central canal or neural foraminal narrowing. C4-C5: No significant central canal or neural foraminal narrowing. C5-C6: No significant central canal or neural foraminal narrowing. C6-C7: This measures 6 mm and is of doubtful clinical significance given the location. No disc herniations within the central canal. There is a tiny broad- based posterior disc bulge without significant central canal or neural foraminal narrowing. C7-T1: No significant central canal or neural foraminal narrowing. IMPRESSION: 1. Punctate foci of T2 hyperintensity seen within the tonya. This is better appreciated on the same day brain MRI. This is concerning for a demyelinating disease. 2. Straightening of the cervical spine. No significant central canal or neural foraminal narrowing. 3. Mild degenerative disc disease at C6-C7. Electronically signed by: Scott Brooks M.D. 01/17/2019 1:57 PM Blood Pressure Blood Pressure Findings: Elevated blood pressure Blood Pressure Disposition: further management by hospitalist [facility] Narrative There is no leukocytosis or concerning anemia. No significant electrolyte abnormality or kidney failure. No evidence for liver enzyme elevation. testing was negative. The patient appeared to be in a euthyroid state. Urinalysis does not show infection, no hematuria. Lyme disease testing was negative. MRI imaging of the cervical, thoracic and lumbar spine were performed. No acute surgical process by MRI, some disc disease was seen but nothing thought surgical. No spinal lesion seen. MRI of the brain showed lesions in multiple areas consistent with potential MS versus some sort of vasculitis or Lyme disease. On exam, the patient had strong reflexes in both lower extremities. No real weakness. I spoke with neurology initially and then after the MRI results. They suggested a hospital stay as MS seems the likely cause of her symptoms. The concern and need for admission came from the fact that things have progressed rapidly in just 5 days. The patient received IV saline, she was given 1 g of IV Solu-Medrol. The Solu- Medrol was given for potential MS and was recommended by neurology. I talked to the patient about her findings. She understands the concern for MS or other demyelinating disease. She will require further testing and work-up in the hospital as per neurology. I spoke with the clinical case manager, the on-call hospitalist has been consulted. The scribe's documentation has been prepared under my direction and personally reviewed by me in its entirety. I confirm that the note above accurately reflects all work, treatment, procedures, and medical decision making performed by me.
--- NOTE | 2019-01-17 17:34 | Neurology Consultation ---
Date of Consultation January 17, 2019 Assessment & Plan (1) Abnormal brain MRI: 1. MRI brain, c spine, t spine, l spine- possible MS lesions need to r/o 2. CTA head and neck- r/o vasculitis 3. LP- tomorrow Labs ordered for r/o MS and other etiologies of lesions 4. if vasculities would start on IV solumetrol 1 g per day x 3 then 80 mg x 2 days, 60 mg x 4 days, 40 mg x 4 days, 20 mg x 4 days 10 mg x 4 days then stop 5. if positive for zoster- start IV valacyclovir 6. serum labs for r/o will be ordered for tomorrow am 7. further recommendations to follow 8. Enbrel does have an MS warning on packaging Supervising Physician Co-Signing Physician Notes I have seen and discussed above patient with Dr Lolis Cavanaugh, neurology Pt seen and examined. R V1 shingles spring 2018, secondary R cataract. Several days ago worsening vision in R eye without pain or headache, restarted on valtrex and prednisilone drops. 5 day ago numbness feet ascend to mid calf, yesterday numbness buttocks. Some urinary urgency. No spine pain, lhermittes. no prior neurodysfunction. No hx clot, miscarriage. PT with RA on embrel. Exam notable for full strength, intact and nonpath reflexes, decreased T and LT to sl above ankle, nl cerebellar dysfunction. MRI brain enchancing white matter, spine ok. MS poss triggered by Enbrel v post zoster vasculopathy. Doubt later due to absence of headache, lesions do not appear vascular, appear demyelinating. P CTA head and neck. Vasculitis vann. LP including OCB, IGG synthresis rate and myelin basic protein, cyto and testing for varicella zoster. REc tx with antiviral and solumedrol 1 gram daily for 3 d. Will follow with you. CHRISTI Cavanaugh MD History of Present Illness Reason for Consultation: possible MS Requesting Physician: Stanislav Cuba MD Attending Physician: Stanislav Cuba MD History of Present Illness Meena is a 38 year old female who has a H RA in Embrel injections, recent history of herpes Zoster of her right eye with vision loss, started on valac yclovir but was not taking it as directed, vertigo, concussion. She presents with a foot numbness and upper leg and buttock numbness. she thought it was just part of her RA but it became progressively worse. She stepped on a vasiliy and she could not feel it. Her gait is off because of not having feeling in her feet. She had an MRI which had abnormal findings and was admitted for further work up. She state there is no family history of neurologic disorders. denies CP, SOB, abdominal pain, on sided weakness, swallowing issues, decrease vision, pain with moving eye, Lhmettes sign, + bladder issues, no loss of bowel but loss of feeling in rectum. Allergies Allergy/AdvReac Type Severity Reaction Status Date / Time codeine AdvReac Unknown GI UPSET Unverified 01/17/19 10:34 Home Medications Home Medications Medication Instructions Recorded Confirmed Type etanercept [Enbrel SureClick] 50 mg SUBCUT WK 05/23/18 01/17/19 History rizatriptan 10 mg PO UD PRN 05/23/18 01/17/19 History valacyclovir 1,000 mg PO BID 01/17/19 01/17/19 History Patient History Medical History Rheumatoid arthritis (Chronic) Vertigo (Resolved) Concussion (Acute) Head trauma (Acute) Surgical History H/O tubal ligation (Resolved) Family History Other No pertinent family history in first degree relatives Social History Preferred Language: Cook Islander Communication Ability: Effective Chief Engineer Required: No Beliefs That Will Affect Care: Restorationism Restorationism Beliefs: Judaism Current Living Situation: Family Other Information That Helps Us Care for You: No Feels Safe at Home: Yes Safety Concerns: Feels Safe At This Time Smoking Status: Never smoker Do You Dip or Chew Tobacco: No ; Second Hand Exposure: No ; Tobacco Cessation Education Requested by Patient: No Hx Alcohol Use: Yes Hx Substance Use: No Physical Exam Physical Exam: Physical Exam: Constitutional: appearance over nourished, healthy Ears, Nose, Mouth and Throat: mucous membranes moist, no injection and skin normal, eyes normal Cardiovascular: normal S-1 and S-2 and regular rate and rhythm Respiratory: clear to auscultation (CTA) and no rales, rhonchi or wheeze Musculoskeletal: slight peripheral edema peripheral edema and good distal pulses Skin: no stigmata of neurocutaneous disease noted and normal and intact Eyes: extraocular muscles intact (EOMI) and pupils equal, round and reactive to light (PERRL), gross vision holguin intact NEUROLOGIC EXAMINATION: Mental status: Alert and interactive Oriented to full date and location Oriented to person Speech fluent with no evidence of aphasia Cranial Nerves smile eye brow raise intact Reflexes: Deep tendon reflexes were symmetrical and graded 2/5. Sensory: no sensory deficits, cool light touch, vibration, GT proprioception intact Coordination: finger to nose no bi pass Gait/Stance: Posture normal sitting up in bed Motor: Negative for pronator drift of out stretched arms with eyes closed. Strength: biceps triceps deltoids hand vascular physician 5/5 bilaterally, hip flex plantar flex ext 5/5 Results & Data Vital Signs (Past 12 Hours) Vital Signs Temp Pulse Pulse Resp BP BP Pulse Ox 01/17/19 16:27 86 16 144/86 H 98 01/17/19 15:42 98 H 16 162/90 H 98 01/17/19 13:53 84 18 138/92 100 01/17/19 10:17 90 18 155/90 H 99 01/17/19 09:22 36.7 C 82 20 143/98 H 100 Laboratory Results Abnormal lab results 01/17/19 Range/Units 10:22 Chloride 109 H (98-107) mmol/L AST 8 L (15-37) U/L Diagnostic Findings MRI brain- No acute intracranial abnormality identified. Multiple foci of increased T2/FLAIR signal noted within the white matter of the bilateral cerebral hemispheres, bilateral cerebellar hemispheres and central tonya with several of these lesions demonstrating postcontrast enhancement. Primary differential consideration would include demyelinating disease such as multiple sclerosis or Lyme's disease with active demyelination. Neurology workup with lumbar puncture and CSF analysis recommended. Paranasal sinus disease. MRI c spine-. Punctate foci of T2 hyperintensity seen within the tonya. This is better appreciated on the same day brain MRI. This is concerning for a demyelinating disease. Straightening of the cervical spine. No significant central canal or neural foraminal narrowing. Mild degenerative disc disease at C6-C7. MRI L spine-Equivocal 9 mm focus of increased signal within the distal spinal cord the T12 level. This will be further evaluated on an MRI of the thoracic spine which is pending Mild multilevel spondylytic changes with minor triangular spinal canal narrowing at the L2-3 and L3-4 level MRI T spine- Mild to moderate multilevel spondylytic changes as described above. No evidence of high-grade spinal stenosis No evidence of pathologic enhancement No spinal cord lesions identified. This MRI study of the thoracic spine fails to confirm the presence of a T12 intramedullary signal abnormality as was queried on the lumbar spine study
[2019-01-17] MEDS ORDERED: OPTIRAY 320 125ml IV PRN (19:45)
--- NOTE | 2019-01-17 20:30 | CT Scan Report ---
CT ANGIOGRAPHY OF THE NECK WITH CONTRAST CLINICAL HISTORY: Evaluate for vasculitis. COMPARISON STUDY: No previous studies for comparison. Technique: CT angiography of the carotid and vertebral arteries was obtained using Sensbeat 320 IV and 3D reconstruction on an independent workstation. NASCET criteria was utilized. Automated exposure c ontrol was utilized for the study. A dose lowering technique was utilized adhering to the principles of ALARA. CT DOSE: 636.19 mGy.cm Findings: Lung apices are clear. There is no cervical lymphadenopathy. No cervical spine fracture is noted. The bilateral common carotid, cervical internal carotid and vertebral arteries are patent. The re is no dissection or stenosis within these vessels. There is no wall thickening. No plaque is ident ified. There is no CT evidence for vasculitis within the major vessels of the neck. A mucous retentio n cyst within the left maxillary sinus is incidentally noted. IMPRESSION: Unremarkable CTA of the neck. No stenosis or dissection. No evidence for vasculitis within the major vessels within the neck. Electronically signed by: Martin Gregory M.D. 01/17/2019 8:28 PM
--- NOTE | 2019-01-17 20:32 | CT Scan Report ---
CTA ANGIOGRAPHY OF THE HEAD CLINICAL HISTORY: Evaluate for vasculitis. COMPARISON STUDY: MRI the brain January 17, 2019. TECHNIQUE: Helical axial images of the head were obtained following uneventful intravenous administr ation of 116 cc of Optiray 320. Automated exposure control was utilized for the study. A dose lower ing technique was utilized adhering to the principles of ALARA. FINDINGS: A mucous retention cyst within the left maxillary sinus is incidentally noted. No acute int racranial hemorrhage, midline shift or mass effect is present. Ventricular system is normal. Basilar cisterns are patent. There are no extra-axial collections. The bilateral M1, M2, A1 and A2 segments a re patent. The posterior circulation is also intact. No thrombus is noted. There is no dissection or stenosis within the major intracranial vessels. No vascular irregularity is identified to suggest a v asculitis by CT. IMPRESSION: Unremarkable CTA of the head. No CT evidence for vasculitis. No vessel occlusion, stenos is or dissection. Electronically signed by: Martin Gregory M.D. 01/17/2019 8:31 PM
[2019-01-17] MEDS: VALACYCLOVIR HCL 500 MG TABLET PO SCH (20:45)
[2019-01-17] MEDS: prednisoLONE acetate 1% OP SUSP 5 ML BTL OP SCH (20:46)
--- NOTE | 2019-01-17 21:36 | History & Physical Report ---
Date of Service January 17, 2019 Assessment & Plan (1) Bilateral leg paresthesia: 38-year-old female with stable rheumatoid arthritis on Enbrel, history of herpes zoster affecting right eye vision a few months ago, Presenting with few days history of bilateral lower extremity anesthesias and numbness. BILATERAL LEG PARESTHESIA, NUMBNESS, POSSIBLE MULTIPLE SCLEROSIS Brain MRI: IMPRESSION: 1. No acute intracranial abnormality identified. 2. Multiple foci of increased T2/FLAIR signal noted within the white matter of the bilateral cerebral hemispheres, bilateral cerebellar hemispheres and central tonya with several of these lesions demonstrating postcontrast enhancement. Primary differential consideration would include demyelinating disease such as multiple sclerosis or Lyme's disease with active demyelination. Neurology workup with lumbar puncture and CSF analysis recommended. 3. Paranasal sinus disease. --Neurologist consulted by ER physician, recommended Solu-Medrol 1 g IV, will need lumbar puncture Formal neurology consult placed, further serologic work-up to be ordered by neurology service --Neurochecks ordered RHEUMATOID ARTHRITIS --No signs and symptoms of flareup She follows with [facility] rheumatology clinic --On Enbrel weekly, hold for now, will need to be discussed with rheumatology service HERPES ZOSTER WITH RIGHT EYE INVOLVEMENT --Follows with paper sample clerk, advised to continue Valtrex p.o. twice daily DVT prophylaxis SCDs for now in light of possible lumbar puncture tomorrow Disposition PT OT evaluation Patient lives at home with family History of Present Illness 38-year-old female with history of rheumatoid arthritis, on Enbrel, Herpes zoster with right eye involvement diagnosed last spring, continue with bilateral lower extremity paresthesias times a few days. Patient follows up with [facility] rheumatology clinic for stable rheumatoid arthritis on Enbrel. During the past week, the patient was having blurred vision of the right eye. Her paper sample clerk advised her to continue p.o. Valtrex for possible herpes zoster that is not yet fully treated. For the past few days, the patient started to have paresthesias described as [id number]-[id number]/numbness of her feet and posterior lower extremities, extending to the buttock area. This has since progressed to the point that patient's walking has been affected, thus prompting consult to the ER. At the ER, MRI of the brain revealed: IMPRESSION: 1. No acute intracranial abnormality identified. 2. Multiple foci of increased T2/FLAIR signal noted within the white matter of the bilateral cerebral hemispheres, bilateral cerebellar hemispheres and central tonya with several of these lesions demonstrating postcontrast enhancement. Primary differential consideration would include demyelinating disease such as multiple sclerosis or Lyme's disease with active demyelination. Neurology workup with lumbar puncture and CSF analysis recommended. 3. Paranasal sinus disease. Neurologist was consulted, recommended Solu-Medrol 1000 mg IV. On my exam, the patient is sitting up in bed, comfortable, not in distress. Still reports paresthesias of bilateral feet and posterior lower extremities. Denies blurring of vision, diplopia, headache, or any other focal neurologic deficits. No fevers or chills. Primary Care Provider: Syl Galdamez MD Allergies Allergy/AdvReac Type Severity Reaction Status Date / Time codeine AdvReac Unknown GI UPSET Unverified 01/17/19 10:34 Home Medications Home Medications Medication Instructions Recorded Confirmed Type etanercept [Enbrel SureClick] 50 mg SUBCUT WK 05/23/18 01/17/19 History rizatriptan 10 mg PO UD PRN 05/23/18 01/17/19 History valacyclovir 1,000 mg PO BID 01/17/19 01/17/19 History Past Med/Surg History Medical History Rheumatoid arthritis (Chronic) Vertigo (Resolved) Concussion (Acute) Head trauma (Acute) Surgical History H/O tubal ligation (Resolved) Family History Other No pertinent family history in first degree relatives Social History Preferred Language: Malay Communication Ability: Effective Folder And Notcher Required: No Beliefs That Will Affect Care: Orthodoxy Orthodoxy Beliefs: Jehovah'S Witness Current Living Situation: Family Other Information That Helps Us Care for You: No Feels Safe at Home: Yes Safety Concerns: Feels Safe At This Time Smoking Status: Never smoker Do You Dip or Chew Tobacco: No ; Second Hand Exposure: No ; Tobacco Cessation Education Requested by Patient: No Hx Alcohol Use: Yes Hx Substance Use: No Review of Systems Review of Systems: All systems reviewed & are unremarkable except as noted in HPI & below Physical Exam Physical Exam: General- oriented x 3, not in distress, speaks in sentences with no effort or accessory muscle use Head- atraumatic Eyes- PERRL, EOMI, anicteric ENT- oropharynx clear Neck- supple, no JVD, no adenopathy, no thyromegaly; carotids +2/2, no bruits appreciated Lungs- clear to auscultation bilaterally, no rales/wheezes Heart- normal rate, regular rhythm; no murmur, no gallop, no rub appreciated Abdomen- normal bowel sounds, nondistended, soft, nontender, no masses or hepatosplenomegaly Extremities- no pretibial edema, no calf tenderness; peripheral pulses intact Neuro- alert, oriented x 3; CN 2-12 grossly intact; motor 5/5 bilaterally;sensation 50% on bilateral feet, otherwise 100% on all extremities; no other gross focal neurologic deficits Skin- warm & dry Results & Data Vital Signs (Past 12 Hours) Vital Signs Temp Pulse Pulse Resp BP Pulse Ox 01/17/19 20:12 37.3 C 87 18 127/83 96 01/17/19 18:06 89 01/17/19 17:52 36.7 C 70 18 126/85 96 01/17/19 16:27 86 16 144/86 H 98 01/17/19 15:42 98 H 16 162/90 H 98 01/17/19 13:53 84 18 138/92 100 01/17/19 10:17 90 18 155/90 H 99 Laboratory Results Laboratory Results - last 24 hr 01/17/19 01/17/19 01/17/19 10:19 10:22 10:22 WBC 7.28 RBC 4.64 Hgb 14.1 Hct 42.1 MCV 90.7 MCH 30.4 MCHC 33.5 RDW Std Deviation 44.7 RDW Coeff of Dirk 13.6 Plt Count 380 MPV 10.3 Immature Gran % (Auto) 0.1 Neut % (Auto) 61.8 Lymph % (Auto) 31.0 [place] % (Auto) 5.9 Eos % (Auto) 0.8 Baso % (Auto) 0.4 Immature Gran # (Auto) 0.01 Neut # (Auto) 4.49 Lymph # (Auto) 2.26 [place] # (Auto) 0.43 Eos # (Auto) 0.06 Baso # (Auto) 0.03 ESR Sodium Potassium Chloride Carbon Dioxide Anion Gap BUN Creatinine Est Cr Clr Drug Dosing Est GFR ( Amer) Est GFR (Non-Af Amer) BUN/Creatinine Ratio Glucose Calcium Magnesium Total Bilirubin AST ALT Alkaline Phosphatase Total Protein Albumin Globulin Albumin/Globulin Ratio TSH HCG, Qual Negative Urine Color Yellow Urine Appearance Clear Urine pH 6.5 Ur Specific [place] 1.021 Urine Protein Negative Urine Glucose (UA) Negative Urine Ketones Negative Urine Blood Negative Urine Nitrite Negative Urine Bilirubin Negative Urine Urobilinogen Negative Ur Leukocyte Esterase Negative Lyme Disease IgG Ab Negative Lyme Disease IgM Ab Negative 01/17/19 01/17/19 10:22 10:22 WBC RBC Hgb Hct MCV MCH MCHC RDW Std Deviation RDW Coeff of Dirk Plt Count MPV Immature Gran % (Auto) Neut % (Auto) Lymph % (Auto) [place] % (Auto) Eos % (Auto) Baso % (Auto) Immature Gran # (Auto) Neut # (Auto) Lymph # (Auto) [place] # (Auto) Eos # (Auto) Baso # (Auto) ESR 18 Sodium 140 Potassium 3.9 Chloride 109 H Carbon Dioxide 25 Anion Gap 6.0 BUN 11 Creatinine 0.74 Est Cr Clr Drug Dosing 147.7 Est GFR ( Amer) 120.8 Est GFR (Non-Af Amer) 104.2 BUN/Creatinine Ratio 15.1 Glucose 91 Calcium 8.6 Magnesium 1.9 Total Bilirubin 0.3 AST 8 L ALT 14 Alkaline Phosphatase 60 Total Protein 7.1 Albumin 3.5 Globulin 3.6 Albumin/Globulin Ratio 1.0 TSH 0.661 HCG, Qual Urine Color Urine Appearance Urine pH Ur Specific [place] Urine Protein Urine Glucose (UA) Urine Ketones Urine Blood Urine Nitrite Urine Bilirubin Urine Urobilinogen Ur Leukocyte Esterase Lyme Disease IgG Ab Lyme Disease IgM Ab Code Status & VTE Plan Code Status Full code as per patient
[2019-01-18] MEDS: SODIUM CHLORIDE 0.9% 1000ML 1,000 ML IV SCH ×2 (06:11→20:23)
[2019-01-18 06:27] LABS: BUN Creatinine Ratio 13.8 (10-20); Calcium 8.8 mg/dl (8.5-10.1); Creatinine Clr Calc Pharmacy 171.8 ml/min; Est GFR (African American) 131.1; Est GFR (Non-African American) 113.1; Potassium 3.8 mmol/L (3.5-5.1)
[2019-01-18] MEDS: VALACYCLOVIR HCL 500 MG TABLET PO SCH ×2 (07:58→21:01)
[2019-01-18] MEDS: prednisoLONE acetate 1% OP SUSP 5 ML BTL OP SCH ×2 (07:58→21:01)
[2019-01-18] MEDS ORDERED: ACETAMINOPHEN 500 MG TAB PO PRN (10:46)
--- NOTE | 2019-01-18 10:46 | Fluoroscopy Report ---
FLUOROSCOPICALLY GUIDED LUMBAR PUNCTURE CLINICAL HISTORY: abnormal MRI r/o infection and MS FLUOROSCOPY TIME: 0.9 minutes. Single fluoroscopic spot images submitted PROCEDURE: The procedure, risks and benefits were discussed with the patient including the risk of s britta headache, bleeding and infection. The patient agreed to the procedure and informed written cons ent was obtained. The procedure was performed by Dr. Brooks following a timeout. The left L5-S1 in terlaminar space was targeted. Skin overlying the space was prepped and draped in the usual sterile f ashion and local anesthesia was achieved with 1% lidocaine. Under intermittent fluoroscopic guidance, a 20-gauge x 4.75 in. Sprotte needle was inserted into the thecal sac. A total of 10 cc of clear, co lorless cerebral spinal fluid was obtained and spread amongst 4 vials. The patient tolerated the proc edure well. There were no immediate complications. The specimens were sent to the laboratory [facility] the referring physician. IMPRESSION: Successful fluoroscopic guided lumbar puncture with removal of 10 cc of clear, colorless cerebral spinal fluid. No immediate complications. Electronically signed by: Scott Brooks M.D. 01/18/2019 10:45 AM
[2019-01-18 11:17] LABS: Total Protein CSF 57.4 mg/dl (15-45)
[2019-01-18 11:24] LABS: Appearance CSF Clear; CSF Count Tube # 3; CSF Xanthrochromic No xanthochromia; Color CSF Colorless
[2019-01-18 11:25] LABS: Red Blood Cell CSF (A) 6 /uL (0-); Red Blood Cell CSF (B) 2 /uL (0-); White Blood Cell CSF (B) 56 /uL (0-5)
[2019-01-18 11:26] LABS: White Blood Cell CSF (A) 60 /uL (0-5)
--- NOTE | 2019-01-18 13:47 | Hospitalist Progress Note ---
Date of Service January 18, 2019 Assessment & Plan (1) Bilateral leg paresthesia: Abonrmal MRI findings with inflammation on LP and CSF serologies pending. Steroids per Neurology with PO taper planned. Monitor clinical response. In touch with MS specialist with whom patient may need to follow. (2) Rheumatoid arthritis: Holding Enbrel now and due for a dose today but needs to hold off. May be contributing to symptoms. Monitor for flare symptoms. (3) Herpes zoster: Continues on Valtrex. ID consulted for recommendations and thoughts on LP results. (4) DVT prophylaxis: SCDs/ambulation--consider DVT chemoprophylaxis 24 hours after LP Full Code Dispo-likely to home in 2-3 days pending clinical response to steroids. Kristy Torres DO [facility] Hospitalist Subjective 38 yo with acute numbness in her feet which is persistent, thought she was having an RA flare, but this did not manifest and she became concerned when numbness persisted. She is s/p LP revealing an elevated WBC count with a negative gram stain. She denies any infectious symptoms. She is otherwise doing well including tolerating PO. She denies any other symptoms. Review of Systems Review of Systems: All systems reviewed & are unremarkable except as noted in HPI & below Physical Exam Physical Exam: CONSTITUTIONAL: WNWD, vitals as above, generally well-aaron earing EYES: EOMI bilaterally, PERRL, normal conjunctivae ENT: MMM RESPIRATORY: clear to auscultation bilaterally, no crackles, rales or wheezes, normal respiratory effort CARDIOVASCULAR: regular rate and rhythm, S1 and 2 heard without murmurs, gallops or rubs, no JVD, no peripheral edema GASTROINTESTINAL: soft, nontender, nondistended MUSCULOSKELETAL: strength 5/5 throughout, head is normocephalic and atraumatic SKIN: warm and dry NEUROLOGIC: No facial palsy, no dysarthria. CN 2-12 grossly intact, +sensory deficit in bilateral sock distribution, normal cognition, normal speech, no t remor. PSYCHIATRIC: alert cooperative and oriented to person, place and time. Results & Data Vital Signs (Past 12 Hours) Vital Signs Temp Pulse Pulse Resp BP Pulse Ox 01/18/19 11:31 36.4 C L 78 20 113/70 96 01/18/19 08:00 71 01/18/19 07:35 36.7 C 88 20 129/82 97 01/18/19 03:14 36.5 C 81 18 122/76 97 Laboratory Results BMP 01/18/19 05:31 Sodium 138 Potassium 3.8 Chloride 109 H Carbon Dioxide 20 L BUN 9 Creatinine 0.67 Glucose 153 H Calcium 8.8 Medications Administered Current Inpatient Medications Acetaminophen (Tylenol) 1,000 mg PO Q4H PRN PRN Reason: Mild Pain Stop: 01/20/19 10:45 Gadobutrol (Gadavist 65ml) 12 ml IV ONCE PRN PRN Reason: Interaction Checking Stop: 01/21/19 12:15 Last Admin: 01/17/19 12:17 Dose: 12 ml Documented by: Sodium Chloride (Nss 1000ml) 1,000 mls @ 75 mls/hr IV .[id number] [facility] Stop: 02/16/19 16:47 Last Admin: 01/18/19 06:11 Dose: 75 mls/hr Documented by: Ioversol (Optiray 320 125ml) 116 ml IV ONCE PRN PRN Reason: Interaction Checking Stop: 01/21/19 19:44 Last Admin: 01/17/19 19:46 Dose: 116 ml Documented by: Ondansetron HCl (Zofran) 4 mg IV Q6H PRN PRN Reason: Nausea Stop: 02/16/19 16:47 Prednisolone Acetate (Pred Forte 1%) 1 drops OP BID [facility] Stop: 02/16/19 20:59 Last Admin: 01/18/19 07:58 Dose: 1 drops Documented by: Valacyclovir HCl (Valtrex) 1,000 mg PO BID [facility] Stop: 01/27/19 20:59 Last Admin: 01/18/19 07:58 Dose: 1,000 mg Documented by:
--- NOTE | 2019-01-18 15:14 | Neurology Progress Note ---
Date of Service January 18, 2019 Assessment & Plan (1) Abnormal brain MRI: 1. MRI brain, c spine, t spine, l spine- possible MS lesions need to r/o 2. CTA head and neck- r/o vasculitis - no vasculitis on imaging 3. LP- tomorrow Labs ordered for r/o MS and other etiologies of lesions 4. vasculities would start on IV solumetrol 1 g per day x 3 then 80 mg x 2 days, 60 mg x 4 days, 40 mg x 4 days, 20 mg x 4 days 10 mg x 4 days then stop 5. if positive for zoster- start IV valacyclovir 6. serum labs for r/o will be ordered for tomorrow am 7. all imaging and labs to be push over to [facility] system for further review by our MS specialist and Rheumatology 8. Enbrel does have an MS warning on packaging- she will contact her Waiter/Waitress Captain for further instructions Supervising Physician Co-Signing Physician Notes I have seen and discussed above patient with Dr Lolis Cavanaugh, neurology PT seen and examined, see my note of today, MD Mayo Doroteo Robledo is a 38 year old female who has a H RA in [facility], recent history of herpes Zoster of her right eye with vision loss, started on valacyclovir but was not taking it as directed, vertigo, concussion. She presents with a foot numbness and upper leg and buttock numbness. she thought it was just part of her RA but it became progressively worse. She stepped on a vasiliy and she could not feel it. Her gait is off because of not having feeling in her feet. She had an MRI which had abnormal findings and was admitted for further work up. She state there is no family history of neurologic disorders. She had her LP this am and is still flat, gradually has been increased and states no headache. denies CP, SOB, abdominal pain, on sided weakness, swallowing issues, decrease vision, pain with moving eye, Lhmettes sign, + bladder issues, no loss of bowel but loss of feeling in rectum. Physical Exam Physical Exam: Gen: alert NAD, oriented x 3. 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 5/5 Results & Data Vital Signs (Past 12 Hours) Vital Signs Temp Pulse Pulse Resp BP Pulse Ox 01/18/19 11:31 36.4 C L 78 20 113/70 96 01/18/19 08:00 71 01/18/19 07:35 36.7 C 88 20 129/82 97 01/18/19 03:14 36.5 C 81 18 122/76 97 Laboratory Results Abnormal lab results 01/18/19 01/18/19 01/18/19 Range/Units 05:31 10:35 10:35 Chloride 109 H (98-107) mmol/L Carbon Dioxide 20 L (21-32) mmol/L Glucose 153 H (70-99) mg/dl CSF WBC (0-5) /uL CSF Glucose 91 H (40-70) mg/dl CSF Lactate 2.7 H (0.6-2.2) mmol/L CSF Total Protein 57.4 H (15-45) mg/dl 01/18/19 Range/Units 10:35 Chloride (98-107) mmol/L Carbon Dioxide (21-32) mmol/L Glucose (70-99) mg/dl CSF WBC 60 H* (0-5) /uL CSF Glucose (40-70) mg/dl CSF Lactate (0.6-2.2) mmol/L CSF Total Protein (15-45) mg/dl Diagnostic Findings lumbar puncture - results pending CTA head-Unremarkable CTA of the head. No CT evidence for vasculitis. No vessel occlusion, stenosis or dissection. CTA neck- nremarkable CTA of the neck. No stenosis or dissection. No evidence for vasculitis within the major vessels within the neck.
[2019-01-18] MEDS ORDERED: methylPREDNISolone 1,000 MG in DEXTROSE 5% 250 ML IV STA (16:47)
--- NOTE | 2019-01-18 20:55 | Progress Note ---
DATE: 01/18/2019 I am seeing this patient in followup of paresthesias of feet and buttocks with abnormal MRI of the brain showing multiple foci of increased T2 signal flare within the white matter of the bilateral cerebral hemispheres, cerebellar hemispheres and tonya with several of these demonstrating post-contrast enhancement. Primary differential including multiple sclerosis, Lyme disease. Lumbar puncture today was performed successfully. White blood cell count 16 and 100% mononuclear cells. Glucose 91. CSF, lactate 2.7, total protein 57.4. Multiple sclerosis panel pending. Varicella zoster DNA PCR pending. Serum Lyme titer negative. Gram stain negative. Cryptococcal negative. The patient has received 1 dose of I.V. Solu-Medrol. She is on oral Valtrex. She has no complaints. No headache. No change in the paresthesias of the feet, legs or buttocks. No incontinence. PHYSICAL EXAMINATION: GENERAL: Reveals normal extraocular motility, facial symmetry. Symmetric strength. Ankle jerks, downgoing toes. Distal sensory loss to the ankles. No buttock anesthesia. Cerebellar function is normal. VITAL SIGNS: 129/85, 82, 18, 36.4. IMPRESSION: 1. Central nervous system demyelination. CTA showing no evidence of vasculitis vis--vis question of whether or not this maybe post-Zoster vasculitis. I think this is unlikely given the absence of headache or change in mental status. 2. Possible demyelinating disease, could be monophasic. However, some of the white matter lesions or nonenhancing suggesting they are older. Await CSF oligoclonal bands, myelin basic protein and IgG synthesis rate. Treat with 3 days of I.V. Solu-Medrol followed by oral steroids. 3. Regarding Varicella zoster vasculopathy, await the CSF results. Empiric antibiotic coverage at present. Infectious Disease consultation. Although the differential of a mildly elevated CSF white count is broad, I doubt this represents an acute infectious meningitic process. We have been in discussion with [facility] Neurology Multiple Sclerosis provider. She has recommended discontinuing Enbrel, but ultimately decision is hers with her ict managers. I have asked her to discuss this with rheumatology. We will follow with you.
[2019-01-19 06:47] LABS: Hematocrit (blood only) 38.1 % (37-47); Hemoglobin 12.6 g/dL (12.0-16.0); Mean Corpuscular Hemoglobin 29.7 pg (25-34); Mean Corpuscular Hgb Conc 33.1 g/dL (32-36); Mean Corpuscular Volume 89.9 fL (80-100); Mean Platelet Volume 10.5 fL (7.4-10.4); Platelet Count 349 K/uL (130-400); RDW Coefficient of Variation 13.7 % (11.5-14.5); RDW Standard Deviation 44.9 fL (36.4-46.3); Red Blood Count 4.24 M/uL (4.2-5.4); White Blood Count 15.01 K/uL (4.8-10.8)
[2019-01-19 07:21] LABS: BUN Creatinine Ratio 18.3 (10-20); Calcium 8.8 mg/dl (8.5-10.1); Creatinine Clr Calc Pharmacy 173.6 ml/min; Est GFR (African American) 131.1; Est GFR (Non-African American) 113.1; Potassium 3.9 mmol/L (3.5-5.1)
[2019-01-19] MEDS: SODIUM CHLORIDE 0.9% 1000ML 1,000 ML IV SCH (07:38)
[2019-01-19] MEDS: prednisoLONE acetate 1% OP SUSP 5 ML BTL OP SCH (07:38)
[2019-01-19] MEDS: VALACYCLOVIR HCL 500 MG TABLET PO SCH (07:38)
[2019-01-19] MEDS ORDERED: methylPREDNISolone 1,000 MG in DEXTROSE 5% 250 ML IV SCH (09:00)
--- NOTE | 2019-01-19 09:27 | Hospitalist Progress Note ---
Date of Service January 19, 2019 Assessment & Plan (1) Bilateral leg paresthesia: Abonrmal MRI findings with inflammation on LP and CSF serologies pending. Steroids per Neurology with PO taper planned. Monitor clinical response. In touch with MS specialist with whom patient may need to follow. (2) Rheumatoid arthritis: Holding Enbrel now and due for a dose today but needs to hold off. May be contributing to symptoms. Monitor for flare symptoms. (3) Herpes zoster: Continues on Valtrex. ID consulted for recommendations and thoughts on LP results. (4) DVT prophylaxis: SCDs/ambulation Full Code Dispo-likely to home today or tomorrow ROS-No Headache, No Visual Changes, No Nausea, No Vomiting, No Fever, No Chills, No Neck Pain or Stiffness, No Chest Pain, No Palpitations, No SOB, No FAIRCHILD, No Cough, No Sputum, No Wheezing, No Abdominal Pain, No Diarrhea, No Hematemesis, No Hemoptysis, No Unexpected Weight Loss, No Flank pain, No Melena, No Hematochezia, No Frequency, No Urgency, No Burning, No Hematuria, No Rashes, No Diaphoresis. Appetite is Normal, feeling much better today Physical Exam Gen-AAO x 3, NAD, Afebrile, Pleasant, Obese, walking around room Head-NCAT, EOMI, PERRLA, Anicteric Sclera, No Posterior Pharyngeal Erythema Neck-Supple, No JVD, No Thyromegaly, No Masses, No LAD, No Bruits Lungs-Clear to Auscultation Bilaterally, No Rales, No Rhonchi, No Wheezing, No Crepitus Chest-No S4, +S1, +S2, No S3, No Murmurs, No Rubs, No Gallops, No Ectopy Abdomen-Soft, Bowel Sounds Present, Non Tender, Non Distended, No Hepatomegaly, No Splenomegaly, No Palpable Masses, No Rebound, No Rigidity, No Guarding Musculoskeletal-Full Range of Motion Bilaterally, No CVAT Extremities-No Cyanosis, No Clubbing, No Edema Nuero-Cranial Nerves II-XII grossly intact, Motor WNL, DTRs WNL, Strength WNL, Non Focal Psych-Normal Mood Results & Data Vital Signs (Past 12 Hours) Vital Signs Temp Pulse Pulse Resp BP Pulse Ox 01/19/19 08:00 49 L 01/19/19 07:16 36.9 C 82 20 145/78 H 92 01/19/19 04:29 36.6 C 68 14 124/78 98 01/19/19 00:34 36.9 C 82 20 107/65 97 Most labs are pending, Others are checked
--- NOTE | 2019-01-19 10:43 | Infectious Disease Consult ---
Date of Consultation January 19, 2019 Assessment & Plan (1) Abnormal brain MRI: likely MS, mild elevation in csf wbc can be attributed to this as well. Doubt HSV encephalitis. AAO, no MRI enhancement of temporal lobes and no active HSV infection. I wonder if "foggy vision" she experience in November could not have been optic neuritis rather than HSV as she had no active vesiclar lesions associated with this. I have no contraindication to continued valtrex pending eye surgery and would defer to optho but do not feel she currently has HSV encephalitis. Ok for d/c from ID standpoint when otherwise stable History of Present Illness Attending Physician: Yuan Weaver, pt admitted after having leg numbness, MRI brain revealed lesions concerning for MS, she is being followed by neurology and is currently receiving high dose steroids for presumed MS diagnosis. She had LP showing 60 wbc, slightly elevated protein and elevated glucose, culuture and gram stain negative, viral, lyme and bands penidng. serum lyme negative, no tick exposure. no marquez, no f/c. no neck stiffness. States she had shingles around left eye in June, was treated with valtrex with resolution, she is on Enbrel for RA - this was thought to be etiology of shingles. She has had no other episodes of shingles since June. she is following with optho who diagnosed cataract in left eye incidentally with diagnosis of shingles, she is to have repair of this in Mar. She states she had an episode of "foggy vision" in November and was placed back on [facility] valtrex due to need for upcoming surgery, she remains on this. ID consulted for management on shingles. no active lesions currenlty. planning to be d/c later today with f/u with MS specialist as outpatient. she currently has no visual complaints, no marquez, f/c neck stiffness, no cp, sob, cough, no n/v/d/abd pain. overall feeling well. anxious to go home Allergies Allergy/AdvReac Type Severity Reaction Status Date / Time codeine AdvReac Unknown GI UPSET Unverified 01/17/19 10:34 Home Medications Home Medications Medication Instructions Recorded Confirmed Type etanercept [Enbrel SureClick] 50 mg SUBCUT WK 05/23/18 01/17/19 History rizatriptan 10 mg PO UD PRN 05/23/18 01/17/19 History valacyclovir 1,000 mg PO BID 01/17/19 01/17/19 History Patient History Medical History Concussion (Acute) Head trauma (Acute) Rheumatoid arthritis (Chronic) Vertigo (Resolved) Surgical History H/O tubal ligation (Resolved) Family History Other No pertinent family history in first degree relatives Social History Preferred Language: Montserratian Communication Ability: Effective Hand Rigger Required: No Beliefs That Will Affect Care: Presybeterian Presybeterian Beliefs: Gnosticism Current Living Situation: Family Other Information That Helps Us Care for You: No Feels Safe at Home: Yes Safety Concerns: Feels Safe At This Time Smoking Status: Never smoker Do You Dip or Chew Tobacco: No ; Second Hand Exposure: No ; Tobacco Cessation Education Requested by Patient: No Hx Alcohol Use: Yes Hx Substance Use: No Review of Systems Review of Systems: All systems reviewed & are unremarkable except as noted in HPI & below Physical Exam Constitutional: WD/WN, vitals as above Eyes: PERRL, conjunctivae normal, anicteric sclerae ENMT: external ear and nose normal, oropharynx normal Neck: normal visual inspection Respiratory: normal respiratory effort, lungs clear to auscultation Cardiovascular: RRR, no murmur, no edema Gastrointestinal (Abdomen): normal bowel sounds, soft, nontender, no hepatosplenomegaly Musculoskeletal: no cyanosis or clubbing, extremities motor strength 5/5 Skin: no rashes, warm and dry Psychiatric: A+Ox3, euthymic affect Results & Data Vital Signs (Past 12 Hours) Vital Signs Temp Pulse Pulse Resp BP Pulse Ox 01/19/19 08:00 49 L 01/19/19 07:16 36.9 C 82 20 145/78 H 92 01/19/19 04:29 36.6 C 68 14 124/78 98 01/19/19 00:34 36.9 C 82 20 107/65 97 Laboratory Results Microbiology 01/18/19 10:35 Cerebral Spinal Fluid Cryptococcal Antigen Test - Final 01/18/19 10:35 Cerebral Spinal Fluid Gram Stain - Final PG Care Time/CCT Total # of Minutes Spent Total Time Spent with Patient: Total time spent is greater than 50% in coordination of care (as documented) at patient's floor/unit and/or counseling patient:
--- NOTE | 2019-01-19 14:37 | Neurology Progress Note ---
Date of Service January 19, 2019 Assessment & Plan (1) Abnormal brain MRI: 1. MRI brain, c spine, t spine, l spine- possible MS lesions need to r/o 2. CTA head and neck- r/o vasculitis - no vasculitis on imaging 3. LP- Labs ordered for r/o MS and other etiologies of lesions- pending 4. given IV solumetrol 1 g per day x 3 please discharge on 80 mg x 2 days, 60 mg x 4 days, 40 mg x 4 days, 20 mg x 4 days 10 mg x 4 days then stop 5. if positive for zoster- start IV valacyclovir - ID does not think she has CSF involvement and deferring her Valtrex treatment to ophthalmology 6. serum labs for r/o 7. all imaging and labs to be push over to [facility] system for further review by our MS specialist and Rheumatology 8. Enbrel does have an MS warning on packaging- she will contact her Ignition Mechanic for further instructions - was told to stop by rheumatology 9. will arrange for her to see our MS specialist at [facility] or with Dr Cavanaugh Supervising Physician Co-Signing Physician Notes I have seen and discussed above patient with Dr Lolis Cavanaugh, neurology Patient discussed with Llois Garcia. She was discharged prior to my seeing her. Lumbar puncture results show preliminary evidence of no bacterial fungal or tuberculous infection. Varicella-zoster titers and labs for multiple sclerosis are pending. Per Lolis Garcia her exam was somewhat improved with less sensory symptoms today. Infectious disease has seen the patient and did not have any objection if ophthalmology want to continue Valtrex. Clinical impression is demyelinating disease probably not HSV related. Possibly related to Enbrel. Continue 3 days of IV steroids followed by oral taper. We will follow-up on her CSF findings. We are arranging for her to see neuro immunology at [facility]. Doroteo Robledo is a 38 year old female who has a H RA in [place] [facility], recent history of herpes Zoster of her right eye with vision loss, started on valacy clovir but was not taking it as directed, vertigo, concussion. She presents with a foot numbness and upper leg and buttock numbness. she thought it was just part of her RA but it became progressively worse. She stepped on a vasiliy and she could not feel it. Her gait is off because of not having feeling in her feet. She had an MRI which had abnormal findings and was admitted for further work up. She state there is no family history of neurologic disorders. She had her LP this am and is still flat, gradually has been increased and states no headache. She is feeling pretty good today and has been given IV solumedrol 1g x 3 days. She does have a slight headache today but tylenol does relieve it. 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 5/5 bilaterally hip flex 5/5 no pronator drift finger to nose and heel to michael intact, rapid hand movements intact sensation decreased bilaterally LE from heel to toes and toes to mid foot with cool touch Results & Data Vital Signs (Past 12 Hours) Vital Signs Temp Pulse Pulse Resp BP Pulse Ox 01/19/19 11:15 36.4 C L 65 16 136/78 98 01/19/19 08:00 49 L 01/19/19 07:16 36.9 C 82 20 145/78 H 92 01/19/19 04:29 36.6 C 68 14 124/78 98 Laboratory Results Abnormal lab results 01/19/19 01/19/19 Range/Units 06:28 06:28 WBC 15.01 H (4.8-10.8) K/uL MPV 10.5 H (7.4-10.4) fL Chloride 111 H (98-107) mmol/L Carbon Dioxide 19 L (21-32) mmol/L Glucose 147 H (70-99) mg/dl Diagnostic Findings no new imaging
--- NOTE | 2019-01-19 15:05 | Discharge Summary ---
Date of Service January 19, 2019 Admission HPI Per Admitting Provider 38-year-old female with history of rheumatoid arthritis, on Enbrel, Herpes zoster with right eye involvement diagnosed last spring, continue with bilateral lower extremity paresthesias times a few days. Patient follows up with [facility] rheumatology clinic for stable rheumatoid arthritis on Enbrel. During the past week, the patient was having blurred vision of the right eye. Her quality analyst/technical writer advised her to continue p.o. Valtrex for possible herpes zoster that is not yet fully treated. For the past few days, the patient started to have paresthesias described as aywr-zfw-bnewhts/numbness of her feet and posterior lower extremities, extending to the buttock area. This has since progressed to the point that patient's walking has been affected, thus prompting consult to the ER. At the ER, MRI of the brain revealed: IMPRESSION: 1. No acute intracranial abnormality identified. 2. Multiple foci of increased T2/FLAIR signal noted within the white matter of the bilateral cerebral hemispheres, bilateral cerebellar hemispheres and central tonya with several of these lesions demonstrating postcontrast enhancement. Primary differential consideration would include demyelinating disease such as multiple sclerosis or Lyme's disease with active demyelination. Neurology workup with lumbar puncture and CSF analysis recommended. 3. Paranasal sinus disease. Neurologist was consulted, recommended Solu-Medrol 1000 mg IV. On my exam, the patient is sitting up in bed, comfortable, not in distress. Still reports paresthesias of bilateral feet and posterior lower extremities. Denies blurring of vision, diplopia, headache, or any other focal neurologic deficits. No fevers or chills. Primary Care Provider: Syl Galdamez MD Admission Exam Per Admitting Provider General- oriented x 3, not in distress, speaks in sentences with no effort or accessory muscle use Head- atraumatic Eyes- PERRL, EOMI, anicteric ENT- oropharynx clear Neck- supple, no JVD, no adenopathy, no thyromegaly; carotids +2/2, no bruits appreciated Lungs- clear to auscultation bilaterally, no rales/wheezes Heart- normal rate, regular rhythm; no murmur, no gallop, no rub appreciated Abdomen- normal bowel sounds, nondistended, soft, nontender, no masses or hepatosplenomegaly Extremities- no pretibial edema, no calf tenderness; peripheral pulses intact Neuro- alert, oriented x 3; CN 2-12 grossly intact; motor 5/5 bilaterally;sensation 50% on bilateral feet, otherwise 100% on all extremities; no other gross focal neurologic deficits Skin- warm & dry Principal Diagnosis Possible MS RA Leg Paresthesias Abnormal MRI Discharge Exam ROS-No Headache, No Visual Changes, No Nausea, No Vomiting, No Fever, No Chills, No Neck Pain or Stiffness, No Chest Pain, No Palpitations, No SOB, No FAIRCHILD, No Cough, No Sputum, No Wheezing, No Abdominal Pain, No Diarrhea, No Hematemesis, No Hemoptysis, No Unexpected Weight Loss, No Flank pain, No Melena, No Hematochezia, No Frequency, No Urgency, No Burning, No Hematuria, No Rashes, No Diaphoresis. Appetite is Normal Physical Exam Gen-AAO x 3, NAD, Afebrile Head-NCAT, EOMI, PERRLA, Anicteric Sclera, No Posterior Pharyngeal Erythema Neck-Supple, No JVD, No Thyromegaly, No Masses, No LAD, No Bruits Lungs-Clear to Auscultation Bilaterally, No Rales, No Rhonchi, No Wheezing, No Crepitus Chest-No S4, +S1, +S2, No S3, No Murmurs, No Rubs, No Gallops, No Ectopy Abdomen-Soft, Bowel Sounds Present, Non Tender, Non Distended, No Hepatomegaly, No Splenomegaly, No Palpable Masses, No Rebound, No Rigidity, No Guarding Musculoskeletal-Full Range of Motion Bilaterally, No CVAT Extremities-No Cyanosis, No Clubbing, No Edema Nuero-Cranial Nerves II-XII grossly intact, Motor WNL, DTRs WNL, Strength WNL, Non Focal Psych-Normal Mood Discharge Data Allergies Allergy/AdvReac Type Severity Reaction Status Date / Time codeine AdvReac Unknown GI UPSET Unverified 01/17/19 10:34 Consultations 01/17/19 15:14 ED Decision to Admit Stat 01/17/19 16:48 Consult Neurology Routine 01/18/19 12:46 Consult Infectious Diseases Routine Ordered Studies 01/17/19 10:20 MR brain wo/w con Stat MR cervical spine wo/w con Stat MR lumbar spine wo con Stat MR thoracic spine wo/w con Stat 01/17/19 18:11 CT angio head w con Routine CT angio neck with con Routine 01/18/19 10:00 FL lumbar puncture diagnostic Routine Current Diagnoses Zoster without complications (01/17/19) Rheumatoid arthritis, unspecified (01/17/19) Paresthesia of skin (01/17/19) Other abnormal findings on diagnostic imaging of central nervous system (01/17/19) Encounter for prophylactic measures, unspecified (01/17/19) Allergies codeine Adverse Reaction (Unknown, Unverified 01/17/19 10:34) GI UPSET Height/Weight/Isolation Height 5 ft 9 in Weight 137.5 kg Chemistry 01/18/19 01/19/19 05:31 06:28 Sodium 138 140 Potassium 3.8 3.9 Chloride 109 H 111 H Carbon Dioxide 20 L 19 L Anion Gap 9.0 10.0 BUN 9 12 Creatinine 0.67 0.67 Glucose 153 H 147 H Microbiology 01/18/19 10:35 Cerebral Spinal Fluid Acid Fast Bacilli Smear - Final 01/18/19 10:35 Cerebral Spinal Fluid Acid Fast Bacilli Culture - Pending 01/18/19 10:35 Cerebral Spinal Fluid Gram Stain - Final 01/18/19 10:35 Cerebral Spinal Fluid CSF Culture - Preliminary No growth to date. 01/18/19 10:35 Cerebral Spinal Fluid Cryptococcal Antigen Test - Final 01/18/19 10:35 Cerebral Spinal Fluid Fungal Culture - Pending Hospital Course (1) Bilateral leg paresthesia: Abonrmal MRI findings with inflammation on LP and CSF serologies pending. Steroids per Neurology with PO taper planned. In touch with MS specialist with whom patient may need to follow. (2) Rheumatoid arthritis: Holding Enbrel (3) Herpes zoster: Continues on Valtrex. ID recommendations noted (4) DVT prophylaxis: SCDs/ambulation Full Code Dispo DC home and F/U c Neuro and Ophth, Rheum ROS-No Headache, No Visual Changes, No Nausea, No Vomiting, No Fever, No Chills, No Neck Pain or Stiffness, No Chest Pain, No Palpitations, No SOB, No FAIRCHILD, No Cough, No Sputum, No Wheezing, No Abdominal Pain, No Diarrhea, No Hematemesis, No Hemoptysis, No Unexpected Weight Loss, No Flank pain, No Melena, No Hematochezia, No Frequency, No Urgency, No Burning, No Hematuria, No Rashes, No Diaphoresis. Appetite is Normal, feeling much better today Physical Exam Gen-AAO x 3, NAD, Afebrile, Pleasant, Obese, walking around room Head-NCAT, EOMI, PERRLA, Anicteric Sclera, No Posterior Pharyngeal Erythema Neck-Supple, No JVD, No Thyromegaly, No Masses, No LAD, No Bruits Lungs-Clear to Auscultation Bilaterally, No Rales, No Rhonchi, No Wheezing, No Crepitus Chest-No S4, +S1, +S2, No S3, No Murmurs, No Rubs, No Gallops, No Ectopy Abdomen-Soft, Bowel Sounds Present, Non Tender, Non Distended, No Hepatomegaly, No Splenomegaly, No Palpable Masses, No Rebound, No Rigidity, No Guarding Musculoskeletal-Full Range of Motion Bilaterally, No CVAT Extremities-No Cyanosis, No Clubbing, No Edema Nuero-Cranial Nerves II-XII grossly intact, Motor WNL, DTRs WNL, Strength WNL, Non Focal Psych-Normal Mood Total Time Total Time Spent Total Time Spent (In Minutes): 45 mins Total Time Includes: Examination of the Patient, Discharge Planning, Medication Reconciliation and Communication With Other Providers Discharge Plan Discharge Items Patient Disposition: Home - Self-Care Reason For Visit: LEG PARESTHESIAS Discharge Diagnosis: Abnormal MRI Condition on Discharge: Good Health Concerns: Continue to f/u Goals: Neuro work up Activity: Resume your previous activity Lifting: Gradually increase as tolerated Bathing: No limitations Sexual Activity: When tolerated Exercise/Sports: None and Gradually increase as tolerated Driving/Machine Use: No limitations Weightbearing: Full weightbearing Non-emergency contact: Primary Care Provider, Specialist and Neurologist Call non-emergency contact if: you have any medication questions Follow-up/Referrals: Syl Galdamez MD [Primary Care Provider] - Lolis Cavanaugh MD [Physician] - (Call for Appt) Diet: Regular Addtl Attending Provider Instructions: Follow up with Rheumatology, Ophthalmology, and Neurology Pending Studies at Discharge: Yes Studies:: Multiple Serologies Stand-Alone Forms: [facility], Smoking Cessation Medications and DC Order Prescriptions: New prednisolone acetate 1 % Drops,Suspension 1 drp ophthalmic (eye) BID Qty: 10 RF: 0 prednisone 10 mg tablet 10 mg PO DIRECTED Qty: 68 RF: 0 Continued valacyclovir 1 gram tablet 1,000 mg PO BID RF: 0 rizatriptan 10 mg tablet 10 mg PO UD PRN (Reason: Migraine Headache) RF: 0 Discontinued Enbrel SureClick 50 mg/mL (0.98 mL) pen injector 50 mg subcut WK RF: 0 Discharge Orders: Discharge Order (Routine); Ordered 01/19/19 Ordered By: Yuan Weaver Admission Data Admit Date/Time: 01/17/19 15:57 Attending Provider: Yuan Weaver Admit Provider: Stanislav Cuba Primary Care Provider: Syl Galdamez Other Providers: Stanislav [place] ; Lolis Cavanaugh ; Rene Jeong
[2019-01-20 20:14] LABS: Angiotensin Converting Enzyme 21 U/L (9-67); Receptor Binding Ab <0.30 nmol/L
== END 2019-01-19 17:35 | disposition home or self-care (01) | DRG 59 ==
LOC: ED 09:16 → 2N 15:57 → SUATTDRO 15:57 → 2N 16:28